=== PATIENT | female | born 1980 | race Caucasian/White ===

== ENCOUNTER 2021-10-12 17:27 | Emergency (ER) | payer OTHER | END 2021-10-12 22:55 | disposition home or self-care (01) | LOC: FER 17:27 | DX: S13.4XXA Sprain of ligaments of cervical spine, initial encounter (principal); S63.501A Unspecified sprain of right wrist, initial encounter; Z28.310 Unvaccinated for COVID-19; Z88.8 Allergy status to other drugs, medicaments and biological substances; V49.40XA Driver injured in collision with unspecified motor vehicles in traffic accident, initial encounter | CPT/HCPCS: 72125; 73090; 73110 ==